=== PATIENT | female | born 1950 | race Caucasian/White ===

== ENCOUNTER 2018-07-01 14:00 | Outpatient (RCR) | payer MEDICARE, SELFPAY ==
--- NOTE | 2018-05-16 09:24 | HP.PTEVAL_ITS ---
Patient's Visit Information LAWSON HUYNH is a 68 year old F referred to Physical Therapy by Joao Velez MD with a diagnosis of B posterior neck pain. Date of Evaluation: 05/16/18 Physical Therapist: TIFFANIE Alarcon - Visit Plan Frequency: 2x /Week Duration: 3 Weeks Plan: 2X/ week for 3 weeks for MT to c-spine paraspinals, c-spine distraction, sub occipital release with postural and scapular strength with HEP. May also try US PRN. - Subjective Findings: Pt reports that she met with Dr tellez she was having a lot of pain in her neck and wanted t ofind out if it was arthritis or something else. x-ray showed mild arthritis and he suggested to do some PT. The pain comes and goes. It is stiff in the morning. When it is hurting it can be all through the day. It hurts when turns to back up with driving. It is sore at the base of head and neck and up the head. It is more so on the L than the R. She has no weakness or N&T in the arms or hands. She sleeps with 1 pillow under her head at night. 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 She has an 18 month old granddaughter with hypotonia. She does have to lift her and its getting harder. She likes to take ball room dancing classes, likes to bike, reads a lot. She is L handed. - Pain neck pain Pain Intensity (Out of 10): 5 - Objective c-spine AROM: flexion 100%, ext 25%, SB B 50%, Rot B 75%. UE AROM: Full B shoulder AROM. UE MMT: B shld flex, abd, ER and IR 4/5. Posture: Sits with rounded shoulders and fw head. Palptaion: tender B occiput, levator...slight tenderness over mid traps B. Suboccipital release and c-spine distraction felt good to the pt. - Goals Goal 1:: I HEP Goal Time Frame: 2-4 Weeks Goal 2:: Increase c-spine AROM by 25% into rotation and extension (at time of eval AROM: flexion 100%, ext 25%, SB B 50%, Rot B 75%) Goal Time Frame: 2-4 Weeks Goal 3:: Decrease neck pain and stiffness to 2/10 with ADL's Goal Time Frame: 2-4 Weeks Goal 4:: Sit with upright posture and scapular retraction during treatment sessions Goal Time Frame: 2-4 Weeks - Rehabilitation Potential Rehabilitation Potential: Good - Anticipated Interventions Patient/Client Instruction: Educate patient on: Condition, Plan of Care For the Purpose of:: To decrease pain, To increase ROM, To improve nutrient delivery to tissue, To improve muscle performance and motor function, To improve ability to perform ADL's, To increase tolerance to activity/condition/position, To improve health of tissue, To decrease soft tissue restriction, To increase flexibility/ROM Therapeutic Exercise to Include: Strength training, Postural training, Flexibilty training, Passive ROM, Active ROM, Scapular Strength/Stabilization For the Purpose of:: To decrease pain, To increase ROM, To improve nutrient delivery to tissue, To improve muscle performance and motor function, To improve ability to perform ADL's, To improve ability of physical actions for home/community/work/leisure, To improve health of tissue, To decrease soft tissue restriction, To increase flexibility/ROM Manual Therapy Techniques to Include: Passive ROM, Soft tissue mobilization For the Purpose of:: To decrease pain, To increase ROM, To increase oxygenation perfusion, To improve muscle performance and motor function, To improve ability to perform ADL's, To increase tolerance to activity/condition/position, To improve health of tissue, To decrease soft tissue restriction, To increase flexibility/ROM Thermo therapy (hot pack): Yes Ultrasound (thermal/non thermal): Yes For the Purpose of:: To decrease pain, To increase ROM, To improve nutrient delivery to tissue, To improve muscle performance and motor function, To improve ability to perform ADL's, To improve health of tissue, To decrease soft tissue restriction, To increase flexibility/ROM Thank you for the opportunity to evaluate your patient. For Medicare and Medicare HMO plans, please review the plan of care and approve it. It will need to be FAXED BACK to us at [phone] for Medicare purposes. For Medicare only, by signing this I certify the plan of care. Please let me know if there are questions or concerns regarding this plan of care. Physician Keith jonas: Date:
--- NOTE | 2018-07-01 14:31 | HP.PTDCSUM ---
HP - PT D/C Summary It has been my pleasure to treat LAWSON HUYNH under orders from Joao Velez MD, for the diagnosis of B posterior neck pain for a total of 13 visit(s). Discharge Date: 07/01/18 Please see the following information for a summary of their discharge status. - Subjective Subjective: Pt reports that she is better. There is always some pain when she has to turn her head. She is not waking up at night or not as sore in the morning. - Pain neck pain Pain Intensity (Out of 10): 1 - Overall Improvement % Improvement: 75 - Objective Objective/Function: C-spine AROM: Flexion 100%. ext 75%, Rot B 80%, SB B 50%. Posture: sits with upright posture during treatment sessions. Pt is doing her HEP - Goals Goal 1:: I HEP Goal Progress: Goal Met Goal 2:: Increase c-spine AROM by 25% into rotation and extension (at time of eval AROM: flexion 100%, ext 25%, SB B 50%, Rot B 75%) Goal Progress: Goal Met Goal 3:: Decrease neck pain and stiffness to 2/10 with ADL's Goal Progress: Goal Met Goal 4:: Sit with upright posture and scapular retraction during treatment sessions Goal Progress: Goal Met - Plan Plan: DC PT to HEP and possible 1X/ month massage - D/C Information Discharge Comments: DC PT to HEP If there are questions or concerns regarding this patient's physical therapy, please feel free to call me at [phone]. Thank you for the referral of this patient. Sincerely, Linad Case, MPT
== END 2018-07-01 19:00 | disposition home or self-care (01) ==
LOC: PT 14:00
PROVIDERS: Family Provider Family Medicine; PCP Family Medicine; Referring Provider Family Medicine; Visit Provider Family Medicine
DX: M54.2 Cervicalgia (principal)
CPT/HCPCS: 97035; 97110; 97140; 97161; 97530

== ENCOUNTER → 2018-09-10 14:48 | Outpatient (CLI) | payer MEDICARE, SELFPAY ==
--- NOTE | 2018-09-10 14:52 | BI_ITS ---
MAMMOGRAPHY - BILATERAL SCREENING REASON FOR EXAM: Female, 68 years old. Routine annual screening examination. PERTINENT HISTORY: Non-contributory. TECHNIQUE: Digital bilateral breast angie (3D mammographic acquisition) in the CC and MLO projections. 2-D mediolateral oblique (MLO) and craniocaudad (CC) views of both breasts were obtained. CAD: Full Field Digital Mammography with Computer Added Detection was performed. COMPARISON: Comparison is made with prior study dated October 07, 2015 and April 13, 2014. FINDINGS: Breast Composition: There are scattered areas of fibroglandular density. There are no dominant masses or suspicious calcifications. Stable small bilateral axillary lymph nodes. No other significant abnormalities are identified. There has been no significant change since the prior study. BI/SCREENING MAMM (CAD), BILAT IMPRESSION: Stable bilateral screening mammogram. Yearly follow-up mammogram recommended. (A) ASSESSMENT CATEGORY: BIRADS Category 2: Benign. A letter regarding these results will be sent to the patient by the facility within 30 days. Approximately 10% of breast cancers are not detected by mammography. A normal mammogram should not delay biopsy of a clinically suspicious abnormality. [id number] Electronically Signed: Lance Norman, at 9:42 EDT , Service support ,
== END ==
PROVIDERS: Family Provider Family Medicine; PCP Family Medicine; Referring Provider Family Medicine; Visit Provider Family Medicine
DX: Z12.31 Encounter for screening mammogram for malignant neoplasm of breast (principal)
CPT/HCPCS: 77063; 77067

== ENCOUNTER → 2019-02-27 06:47 | Outpatient (CLI) | payer MEDICARE, SELFPAY ==
--- NOTE | 2019-02-27 10:40 | STRESSREP_ITS ---
Stress Test Report Date: 02-27-19 Procedure: Pharmacologic stress nuclear imaging study Indications: Shortness of breath Consent: Per the patient Procedure: The patient underwent pharmacologic (Regadenoson) evaluation with a peak heart rate of 86 beats per minute (56 %predicted maximal heart rate) and a peak blood pressure of 150/98 mmHg. The baseline ECG demonstrated normal sinus rhythm; left bundle branch block pattern. The peak pharmacologic ECG demonstrated no obvious ECG changes. There were no cardiac dysrhythmias pretest, during pharmacologic infusion, or recovery. There was no complaint of chest discomfort during pharmacologic infusion or recovery. The examination was discontinued secondary to completion of protocol. Impression: 1. Pharmacologic (Regadenoson) evaluation 2. Peak pharmacologic ECG with continued left bundle branch block pattern with no obvious ECG changes. 3. There were no cardiac dysrhythmias pretest, during pharmacologic infusion, or recovery. 4. Nuclear images pending Myocardial perfusion imaging study: Technique: The patient was injected with 12.0 millicuries of technetium 99m Cardiolite and subsequently rest SPECT Cardiolite nuclear imaging was obtained in the horizontal long, vertical long, and short axis views. The patient underwent pharmacologic (Regadenoson) evaluation with a peak heart rate of 86 beats per minute (56 % percent predicted maximal heart rate) and a peak blood pressure of 150/98 mmHg. The patient was injected with 36.0 millicuries of technetium 99m Cardiolite and subsequently stress SPECT Cardiolite nuclear imaging was obtained in the horizontal long, vertical long, and short axis views. A gated Cardiolite study at peak stress was obtained. Interpretation: Rest and stress SPECT Cardiolite nuclear imaging status post realignment, normalization, and attenuation correction demonstrate at rest the appearance of diminished tracer uptake in portions of the distal anterior, anteroseptal, anterolateral, and apical segments which status post stress appears to be less prominent. There is end systolic thickening and brightening. The gated Cardiolite study demonstrates myocardial thickening and inward wall motion. The reported LVEF is 73 %. Impression: 1. Rest and stress SPECT Cardiolite nuclear imaging demonstrate myocardial perfusion changes at rest which appear to be less prominent following stress potentially compatible with shifting soft tissue attenuation/artifact, however, an area of previous myocardial injury/infarction involving the aforementioned areas cannot necessarily be excluded. There are no myocardial perfusion changes considered diagnostic for associated stress-induced myocardial ischemia. 2. The gated Cardiolite study reports an LVEF of 73 %. This note was generated with [employer] software. It may contain incorrect words, spelling, and punctuation that were not noted in checking the note before signing.
== END ==
PROVIDERS: Family Provider Family Medicine; PCP Family Medicine
DX: I10 Essential (primary) hypertension (principal); I44.7 Left bundle-branch block, unspecified; R06.02 Shortness of breath; R73.01 Impaired fasting glucose
CPT/HCPCS: 78452; 93017; A9500; A4216; J2785

== ENCOUNTER → 2020-01-29 15:00 | Outpatient (CLI) | payer MEDICARE, SELFPAY ==
[2017-09-06 15:14] VITALS: BMI 36.8
--- NOTE | 2020-01-29 15:05 | RAD_ITS ---
STUDY: X-RAY - LEFT FOOT CLINICAL: Female, 69 years old. hit foot on step, left 2nd digit pain TECHNIQUE: 3 view(s) of the foot. COMPARISON: None. FINDINGS: The bones of the foot are intact and located with mild age-appropriate change. Soft tissues are unremarkable. RAD/Foot min 3 Views IMPRESSION: Unremarkable foot radiography, chronic age-related change. Electronically Signed: Melissa Bedolla, at 15:51 EDT Tel , Service support ,
== END ==
PROVIDERS: PCP Family Medicine; Referring Provider Family Medicine; Visit Provider Family Medicine
DX: M79.675 Pain in left toe(s) (principal)
CPT/HCPCS: 73630

== ENCOUNTER → 2020-11-30 13:18 | Outpatient (CLI) | payer MEDICARE, SELFPAY ==
--- NOTE | 2020-11-30 13:20 | BI_ITS ---
MAMMOGRAPHY - BILATERAL SCREENING REASON FOR EXAM: Female, 70 years old. Routine annual screening examination. PERTINENT HISTORY: Non-contributory. TECHNIQUE: Digital bilateral breast roger (3D mammographic acquisition) in the CC and MLO projections. 2-D mediolateral oblique (MLO) and craniocaudad (CC) views of both breasts were obtained. CAD: Full Field Digital Mammography with Computer Added Detection was performed. COMPARISON: Comparison is made with prior study dated 09/10/2018 and 10/07/2015. FINDINGS: Breast Composition: There are scattered areas of fibroglandular density. There are no dominant masses or suspicious calcifications. Stable benign-appearing bilateral axillary No other significant abnormalities are identified. There has been no significant change since the prior study. BI/SCRN MAMM (CAD)W/ROGER BILAT IMPRESSION: Stable bilateral screening mammogram. Yearly follow-up mammogram recommended. (A) ASSESSMENT CATEGORY: BIRADS Category 2: Benign. A letter regarding these results will be sent to the patient by the facility within 30 days. Approximately 10% of breast cancers are not detected by mammography. A normal mammogram should not delay biopsy of a clinically suspicious abnormality. [id number] Electronically Signed: Lance Norman MD at 14:37 EDT , Service support ,
== END ==
PROVIDERS: PCP Family Medicine; Referring Provider Family Medicine; Visit Provider Family Medicine
DX: Z12.31 Encounter for screening mammogram for malignant neoplasm of breast (principal)
CPT/HCPCS: 77063; 77067

== ENCOUNTER → 2020-12-02 11:22 | Outpatient (CLI) | payer MEDICARE, SELFPAY ==
[2017-09-06 15:14] VITALS: BMI 36.8
[2020-12-02 12:38] LABS: Absolute Lymphocyte Count 2.94 X10^3/uL (0.83-4.51); Absolute Neutrophil Count 2.7 X10^3/uL (2.0-7.7); Basophil# 0.04 X10^3/uL; Basophil% 0.6 % (0-1); Eosinophil# 0.28 X10^3/uL; Eosinophils% 4.2 % (0-5); Hemoglobin 14.6 g/dL (12.0-15.0); Lymphocyte # 2.94 X10^3/ul (0.83-4.51); Lymphocyte % 43.6 % (19-41); Mean Corp Hgb Conc 31.7 g/dL (32-36); Mean Corpuscular Hgb 28.5 pg (27.0-32.0); Mean Corpuscular Volume 89.7 fL (81-99); Mean Platelet Vol. 11.3 fl (6.2-12.0); Monocyte# 0.73 X10^3/uL; Monocyte% 10.8 % (0-10); NRBC Flagged by Analyzer 0 % (0-5); Neutrophil # 2.72 X10^3/uL (2.7-7.7); Neutrophil % 40.4 % (47-70); Platelet Count 273 K/mm3 (150-450); RBC Distribution Width CV 14.4 % (11.6-14.6); RBC Distribution Width SD 46.7 fl (35.1-43.9); Red Blood Count 5.13 M/mm3 (4.2-5.4); White Blood Count 6.7 K/mm3 (4.4-11.0)
[2020-12-02 13:01] LABS: Hemoglobin A1c 5.7 % (3.8-5.6)
[2020-12-02 13:31] LABS: AST(SGOT) 36 U/L (15-37); Alanine Aminotransfer ALT/SGPT 55 U/L (13-56); Albumin, Serum 3.5 g/dL (3.2-5.0); Alkaline Phosphatase 71 U/L (45-117); Anion Gap 5 (5-15); BUN 15 mg/dL (7-18); BUN/Creat Ratio 19.4 RATIO (10-20); Chloride 105 mmol/L (98-107); Cholesterol 185 mg/dL (200); Creatinine, Serum 0.77 mg/dL (0.55-1.02); EST Glomerular Filtration Rate 79 mL/min (>60); Est Glom Filt Rate - Afr Amer 95 mL/min (>60); Globulin 3.6 g/dL (2.2-4.2); Glucose 95 mg/dL (74-106); High Density Lipoprotein 49 mg/dL; Potassium 3.6 mmol/L (3.5-5.1); Protein, Total 7.1 g/dL (6.4-8.2); Sodium Level 140 mmol/L (136-145); Thyroid Stim Hormone (TSH) 0.15 uIU/mL (0.358-3.74); Triglycerides 184 mg/dL; Very Low Density Lipoprotein 37 mg/dL (5-40)
[2020-12-02 15:51] LABS: Hepatitis C Antibody Non-Reactive (Nonreactive)
== END ==
PROVIDERS: PCP Family Medicine; Referring Provider Family Medicine; Visit Provider Family Medicine
DX: Z00.00 Encounter for general adult medical examination without abnormal findings (principal); I10 Essential (primary) hypertension; R73.01 Impaired fasting glucose; E78.1 Pure hyperglyceridemia
CPT/HCPCS: 36415; 80053; 80061; 83036; 84443; 85025; 86803

== ENCOUNTER 2021-09-07 20:00 | Outpatient (CLI) | payer MEDICARE, SELFPAY ==
[2021-09-07 20:05] LABS: Mucous, Urine 0 SEEN /hpf (<or=2+); Red Blood Cells-Urine 0 SEEN /hpf (0-5); Squamous Epithelial Cells - UA 0 SEEN /hpf (5-10)
[2021-09-07 20:14] LABS: Color, Urine Amber (Yellow); Glucose, Dipstick Normal (Normal); Ketone-Dipstick Negative (Negative); Leukocyte Esterase-Dipstick 100 /ul (Negative); Nitrite-Dipstick Positive (Negative); Occult Blood-Urine Negative /ul (Negative); Protein-Dipstick 15 mg/dl (Negative); Urine Clarity Clear (Clear); Urine Urobilinogen 4 mg/dl (Normal)
[2021-09-07 20:30] LABS: Urine Bilirubin Dipstick 3 mg/dL (Negative)
[2021-09-07 20:39] LABS: White Blood Cells 25-50 SEEN /hpf (0-5)
[2021-09-07 20:40] LABS: Bacteria 1+ /hpf (None Seen)
== END 2021-09-07 23:59 | disposition home or self-care (01) ==
PROVIDERS: PCP Family Medicine; Referring Provider Physician Assistant; Visit Provider Physician Assistant
DX: N39.0 Urinary tract infection, site not specified (principal); R34 Anuria and oliguria; R35.0 Frequency of micturition; R30.0 Dysuria
CPT/HCPCS: 81001; 87086; 87088

== ENCOUNTER → 2021-12-28 | Outpatient (CLI) | payer MEDICARE, SELFPAY ==
--- NOTE | 2021-12-28 15:20 | BI_ITS ---
MAMMOGRAPHY - BILATERAL SCREENING REASON FOR EXAM: Female, 71 years old. Routine annual screening examination. PERTINENT HISTORY: Non-contributory. TECHNIQUE: Digital bilateral breast roger (3D mammographic acquisition) in the CC and MLO projections. 2-D mediolateral oblique (MLO) and craniocaudad (CC) views of both breasts were obtained. CAD: Full Field Digital Mammography with Computer Added Detection was performed. COMPARISON: Comparison is made with prior study dated 11/30/2020 and 09/10/2018. FINDINGS: Breast Composition: There are scattered areas of fibroglandular density. There are no dominant masses or suspicious calcifications. Stable small benign-appearing bilateral axillary lymph nodes. No other significant abnormalities are identified. There has been no significant change since the prior study. BI/SCRN MAMM (CAD)W/ROGER BILAT IMPRESSION: Stable bilateral screening mammogram. Yearly follow-up mammogram recommended. (A) ASSESSMENT CATEGORY: BIRADS Category 2: Benign. A letter regarding these results will be sent to the patient by the facility within 30 days. Approximately 10% of breast cancers are not detected by mammography. A normal mammogram should not delay biopsy of a clinically suspicious abnormality. [id number] Electronically Signed: Lance Norman MD at 8:16 EDT ,
--- NOTE | 2021-12-28 15:24 | BD_ITS ---
STUDY: DUAL ENERGY X-RAY ABSORPTIOMETRY / DXA REASON FOR EXAM: Female, 71 years old. Z780. Patient is postmenopausal. TECHNIQUE: Bone Mineral Density (BMD) measurements of lumbar spine and bilateral hips were obtained. COMPARISON: None. FINDINGS: Lumbar Spine (L1-L4): g/cm2 (0.772) / T-score (-2.5) / Z-score (-0.3) Findings are suggestive of osteopenia with a high fracture risk. Left Femur Total: g/cm2 (0.922) / T-score (-0.2) / Z-score (1.4) Left Femoral Neck: g/cm2 (0.641) / T-score (-1.9) / Z-score (0.0) Right Femur Total: g/cm2 (0.917) / T-score (-0.2) / Z-score (1.3) Right Femoral Neck: g/cm2 (0.681) / T-score (-1.5) / Z-score (0.3) BD/Dexa Bone Density Study IMPRESSION: The patient is considered osteopenic as outlined below according to World Marco Organization (WHO) criteria with a high fracture risk. Reference Information: The T-score is the number of standard deviations above or below the standard which is normal for young adults at their peak bone mineral density. The World Health Organization (WHO) interprets the T-scores as follows: Above -1 Normal bone density Between -1 and -2.5 Osteopenia Equal to / or below -2.5 Osteoporosis As a practical clinical guideline, osteopenia may be graded as follows: Mild -1 through -1.5 Moderate -1.6 through -2.0 Severe -2.1 through -2.4 The Z-score is the number of standard deviations above or below age-matched controls. A Z-score of less than -1.5 would be considered abnormal. References: 1. NIH Osteoporosis and Related Bone Diseases www osteo.org 2. International Society for Clinical Densitometry www iscd.org 3. National Osteoporosis Foundation www nof.org Electronically Signed: Lance Norman MD at 12:39 EDT ,
== END | disposition home or self-care (01) ==
PROVIDERS: PCP Family Medicine; Visit Provider Family Medicine
DX: Z78.0 Asymptomatic menopausal state (principal); Z12.31 Encounter for screening mammogram for malignant neoplasm of breast
CPT/HCPCS: 77063; 77067; 77080

== ENCOUNTER → 2022-10-03 | Outpatient (CLI) | payer MEDICARE, SELFPAY ==
--- NOTE | 2022-10-03 14:50 | US_ITS ---
STUDY: ULTRASOUND OF THE FEMALE PELVIS - COMPLETE REASON FOR EXAM: Female, 72 years old. PAIN LMP: TECHNIQUE: Transabdominal and transvaginal TECHNICAL QUALITY: Adequate. COMPARISON: None. FINDINGS: The uterus is anteverted and is in a midline position. The uterus measures 6.8 x 4.7 x 2.4 cm. Normal uterine cervix. The endometrium measures 3.3 mm in thickness, and is hyperechoic with intraluminal fluid.. There is no demonstrated endometrial mass. There is a small fundal fibroid measuring 1.7 x 2.3 x 2 cm. I.U.D. - The patient does not have an I.U.D. Ovaries are not visualized due to patient body habitus and gas. No discrete adnexal mass or free fluid is observed.. US/Pelvic (Non ) IMPRESSION: Small intrauterine fibroid measuring approximately 1.7 x 2.3 x 2 cm. Nonvisualization of the normal ovaries however there is no adnexal mass or free fluid Electronically Signed: Chetan Delong MD at 17:39 EDT ,
--- NOTE | 2022-10-03 14:50 | US_ITS ---
STUDY: ULTRASOUND OF THE FEMALE PELVIS - COMPLETE REASON FOR EXAM: Female, 72 years old. PAIN LMP: TECHNIQUE: Transabdominal and transvaginal TECHNICAL QUALITY: Adequate. COMPARISON: None. FINDINGS: The uterus is anteverted and is in a midline position. The uterus measures 6.8 x 4.7 x 2.4 cm. Normal uterine cervix. The endometrium measures 3.3 mm in thickness, and is hyperechoic with intraluminal fluid.. There is no demonstrated endometrial mass. There is a small fundal fibroid measuring 1.7 x 2.3 x 2 cm. I.U.D. - The patient does not have an I.U.D. Ovaries are not visualized due to patient body habitus and gas. No discrete adnexal mass or free fluid is observed.. US/Transvaginal Non- IMPRESSION: Small intrauterine fibroid measuring approximately 1.7 x 2.3 x 2 cm. Nonvisualization of the normal ovaries however there is no adnexal mass or free fluid Electronically Signed: Chetan Delong MD at 17:39 EDT ,
== END | disposition home or self-care (01) ==
LOC: US 14:47
PROVIDERS: PCP Family Medicine; Referring Provider Family Medicine; Visit Provider Family Medicine
DX: R10.2 Pelvic and perineal pain (principal)
CPT/HCPCS: 76830; 76856

== ENCOUNTER 2022-11-23 08:30 | Outpatient (RCR) | payer MEDICARE, SELFPAY ==
--- NOTE | 2022-10-03 17:27 | HP.PTEVAL_ITS ---
Patient's Visit Information LAWSON HUYNH is a 72 year old F referred to Physical Therapy by Dr. Nuzhat Armendariz MD with a diagnosis of PSOAS MUSCLE STRAIN. Date of Evaluation: 10/03/22 Physical Therapist: Rod Barrera PT, Cert MDT, OCS - Visit Plan Frequency: 2x /Week Duration: 4 Weeks Plan: PT INTERVTIONS POSTURAL EX'S ,DLS , LE FLEXABLITY , HIP STRENGTHENING AND OKAY FOR US NEEDED FOR PAIN - Subjective This 72 y/o female presents to physical therapy for right back pain. Patient has had right LBP for ~ 2months . Patient has no etiology of pain other than yardwork and housework . Seen Dr tried exercises and tried chiropractor did not help. Patient had x-rays of lumbar by chiropractor. Patient had US today vaginal . Aggravating factors AM, bending, lifting ,stairs , walking and standing extended . Alleviating factors Aleve ,muscle relaxer ,rest. Coughing/sneezing -. Bowel/bladder -. Pain affects sleeping. Patient has no h/o trauma. Patient pain affects QOL and function. SOCIAL: . VOCATION: retired - Pain Right Back Pain Intensity (Out of 10): 7 Pain Intensity Range: N/A - Objective POSTURE: mild forward posture. PALPATION: unremarkable. SYMMETRIES: align. FLEXABILITY: hamstrings min tight. LUMBAR ROM: flexion WFL ,extension mod loss pain right side ,side glides min. MMT: quads/hams 4/5, ( peak force) hip flexion right 12.3,left 15.8 ,ankle 4/5 - Special Tests L/S Slump test left side: Negative L/S Slump test right side: Negative L/S Left Straight Leg Raise: Negative L/S Right Straight Leg Raise: Negative Lumbar Standing: Flexion - Mechanical Response: No effect Lumbar Standing: Flexion - Symptoms During Testing: Increases Lumbar Standing: Flexion - Symptoms After Testing: No worse Lumbar Standing: Extension - Mechanical Response: No effect Lumbar Standing: Extension - Symptoms During Testing: Increases Lumbar Standing: Extension - Symptoms After Testing: Worse Lumbar Standing: Right Side Glides - Mechanical Response: No effect Lumbar Standing: Right Side [place] - Symptoms During Testing: No effect Lumbar Standing: Right Side [place] - Symptoms After Testing: No effect Lumbar Standing: Left Side [place] - Mechanical Response: No effect Lumbar Standing: Left Side [place] - Symptoms During Testing: No effect Lumbar Standing: Left Side [place] - Symptoms After Testing: No effect Lumbar Lying: Flexion - Mechanical Response: No effect Lumbar Lying: Flexion - Symptoms During Testing: Increases Lumbar Lying: Flexion - Symptoms After Testing: No worse Lumbar Lying: Extension - Mechanical Response: Increases motion Lumbar Lying: Extension - Symptoms During Testing: Increases Lumbar Lying: Extension - Symptoms After Testing: Worse - Balance/Special Test Scores Oswestry Low Back Score: 22 - Goals Goal 1:: Patient to be I with HEP Goal Time Frame: 4-6 Weeks Goal 2:: Patient to improve posture/body mechanics for ADL's 80% of the time. Goal Time Frame: 4-6 Weeks Goal 3:: Patient to improve lumbar ROM for function of recovery to tie shoes and ADL's Goal Time Frame: 4-6 Weeks Goal 4:: Patient to improve peak force MMT by 5-10 points to improve gait and function Goal Time Frame: 4-6 Weeks Goal 5:: Patient to improve back oswestry score by 5 points to improve QOL and function. Goal Time Frame: 4-6 Weeks - Rehabilitation Potential Physical Therapy Diagnosis: This patient has lumbar pain right side with possible lateral stenosis pain worse with extension ,positioning and motion testing ,affects walking/standing impairs ADLS and housework tasks Rehabilitation Potential: Good - Anticipated Interventions Patient/Client Instruction: Educate patient on: Condition, Plan of Care For the Purpose of:: To decrease pain, To increase ROM, To improve muscle performance and motor function, To improve ability to perform ADL's, To increase tolerance to activity/condition/position, To improve ability of physical actions for home/community/work/leisure, To improve health of tissue, To decrease soft tissue restriction, To increase flexibility/ROM Therapeutic Exercise to Include: Strength training, Endurance training, Body mechanics, Postural training, Flexibilty training, Active ROM, Dynamic Lumbar Stabilization Comment: HIPS For the Purpose of:: To decrease pain, To increase ROM, To improve muscle performance and motor function, To improve ability to perform ADL's, To increase tolerance to activity/condition/position, To improve ability of physical actions for home/community/work/leisure, To improve health of tissue, To decrease soft tissue restriction, To increase flexibility/ROM, To improve tolerance to ADL's Cryotherapy (ice pack, ice massage): Yes Thermo therapy (hot pack): Yes Ultrasound (thermal/non thermal): Yes For the Purpose of:: To decrease pain, To increase ROM, To improve nutrient delivery to tissue, To increase oxygenation perfusion, To improve health of tissue, To decrease soft tissue restriction Thank you for the opportunity to evaluate your patient. For Medicare and Medicare HMO plans, please review the plan of care and approve it. It will need to be FAXED BACK to us at [phone] for Medicare purposes. For Medicare only, by signing this I certify the plan of care. Please let me know if there are questions or concerns regarding this plan of care. Physician Signature: Date:
--- NOTE | 2022-11-23 09:28 | HP.PTDCSUM ---
It has been my pleasure to treat LAWSON HUYNH referred by Dr. Nuzhat Armendariz MD, with the diagnosis of PSOAS MUSCLE STRAIN for a total of 9 visit(s). Discharge Date: 11/23/22 Please see the following information for a summary of their discharge status. Subjective: Patient symptoms worse initially then since Saturday symptoms 90%. pain 7-8 /10 Right Back Pain Intensity (Out of 10): 0 % Improvement: 90 Objective/Function: POSTURE: mild forward posture. PALPATION: unremarkable. SYMMETRIES: align. FLEXABILITY: hamstrings min tight. LUMBAR ROM: flexion WFL ,extension MIN loss ,side glides min. MMT: quads/hams 4/5, ( peak force) hip flexion right 22.7,left 25.3 ,ankle 4/5 Goal 1:: Patient to be I with HEP Goal Progress: Goal Met Goal 2:: Patient to improve posture/body mechanics for ADL's 80% of the time. Goal Progress: Goal Met Goal 3:: Patient to improve lumbar ROM for function of recovery to tie shoes and ADL's Goal Progress: Goal Met Goal 4:: Patient to improve peak force MMT by 5-10 points to improve gait and function Goal Progress: Goal Met Goal 5:: Patient to improve back oswestry score by 5 points to improve QOL and function. Goal Progress: Goal Met Plan: D/C Discharge Comments: HEP AND GYM If there are questions or concerns regarding this patient's physical therapy, please feel free to call me at [phone]. Thank you for the referral of this patient. Sincerely, Rod Barrera, PT, Cert MDT, OCS Balance/Gait/Functional tests - Balance/Special Test Scores Oswestry Low Back Score: 6
== END 2022-11-23 19:00 | disposition home or self-care (01) ==
LOC: PT 08:30
PROVIDERS: PCP Family Medicine; Referring Provider Family Medicine; Visit Provider Family Medicine
DX: S76.011D Strain of muscle, fascia and tendon of right hip, subsequent encounter (principal)
CPT/HCPCS: 97110; 97162; 97530

== ENCOUNTER → 2023-03-06 | Outpatient (CLI) | payer MEDICARE, SELFPAY ==
[2023-03-06 12:29] LABS: Hematocrit 45.7 % (37-47); Hemoglobin 14.5 g/dL (12.0-15.0); Mean Corp Hgb Conc 31.7 g/dL (32-36); Mean Corpuscular Hgb 29.1 pg (27.0-32.0); Mean Corpuscular Volume 91.6 fL (81-99); Mean Platelet Vol. 11.4 fl (6.2-12.0); Platelet Count 220 K/mm3 (150-450); RBC Distribution Width CV 13.8 % (11.6-14.6); RBC Distribution Width SD 46.5 fl (35.1-43.9); Red Blood Count 4.99 M/mm3 (4.2-5.4); White Blood Count 6.8 K/mm3 (4.4-11.0)
[2023-03-06 13:09] LABS: ALB/GLOB Ratio 0.8 RATIO (0.9-2.4); AST(SGOT) 37 U/L (15-37); Alanine Aminotransfer ALT/SGPT 49 U/L (13-56); Albumin, Serum 3.2 g/dL (3.2-5.0); Alkaline Phosphatase 74 U/L (45-117); Anion Gap 7 (5-15); BUN 14 mg/dL (7-18); BUN/Creat Ratio 18.5 RATIO (10-20); Calcium,Total 9.2 mg/dL (8.5-10.1); Chloride 108 mmol/L (98-107); Creatinine, Serum 0.76 mg/dL (0.55-1.02); EST Glomerular Filtration Rate 80 mL/min (>60); Est Glom Filt Rate - Afr Amer 97 mL/min (>60); Globulin 4.1 g/dL (2.2-4.2); Glucose 102 mg/dL (74-106); Potassium 4.4 mmol/L (3.5-5.1); Protein, Total 7.3 g/dL (6.4-8.2); Sodium Level 135 mmol/L (136-145)
[2023-03-06 13:34] LABS: Hemoglobin A1c 5.8 % (3.8-5.6)
== END | disposition home or self-care (01) ==
PROVIDERS: PCP Family Medicine; Referring Provider Family Medicine; Visit Provider Family Medicine
DX: E03.9 Hypothyroidism, unspecified (principal); R73.01 Impaired fasting glucose; I10 Essential (primary) hypertension
CPT/HCPCS: 36415; 80053; 83036; 84443; 85027

== ENCOUNTER → 2023-03-25 | Outpatient (CLI) | payer MEDICARE, SELFPAY ==
--- NOTE | 2023-03-25 14:11 | BI_ITS ---
MAMMOGRAPHY - BILATERAL SCREENING REASON FOR EXAM: Female, 73 years old. Routine annual screening examination. PERTINENT HISTORY: Non-contributory. TECHNIQUE: Digital bilateral breast roger (3D mammographic acquisition) in the CC and MLO projections. 2-D mediolateral oblique (MLO) and craniocaudad (CC) views of both breasts were obtained. CAD: Full Field Digital Mammography with Computer Added Detection was performed. COMPARISON: Comparison is made with prior study dated December 28, 2021 and November 30, 2020. FINDINGS: Breast Composition: There are scattered areas of fibroglandular density. There are no dominant masses or suspicious calcifications. Stable benign-appearing bilateral axillary lymph nodes. No other significant abnormalities are identified. There has been no significant change since the prior study. BI/SCRN MAMM (CAD)W/ROGER BILAT IMPRESSION: Stable bilateral screening mammogram. Yearly follow-up mammogram recommended. (A) ASSESSMENT CATEGORY: BIRADS Category 2: Benign. A letter regarding these results will be sent to the patient by the facility within 30 days. Approximately 10% of breast cancers are not detected by mammography. A normal mammogram should not delay biopsy of a clinically suspicious abnormality. [id number] Electronically Signed: Lance Norman MD at 15:19 EDT ,
== END | disposition home or self-care (01) ==
LOC: OPBI 14:09
PROVIDERS: PCP Family Medicine; Referring Provider Family Medicine; Visit Provider Family Medicine
DX: Z12.31 Encounter for screening mammogram for malignant neoplasm of breast (principal)
CPT/HCPCS: 77063; 77067

== ENCOUNTER → 2023-09-06 | Outpatient (CLI) | payer MEDICARE, SELFPAY | END | disposition home or self-care (01) | PROVIDERS: PCP Family Medicine; Referring Provider Physician Assistant Surgical; Visit Provider Physician Assistant Surgical | DX: N39.0 Urinary tract infection, site not specified (principal) | CPT/HCPCS: 87077; 87086; 87088; 87186 ==

== ENCOUNTER → 2023-11-19 | Outpatient (CLI) | payer MEDICARE, SELFPAY ==
--- NOTE | 2023-11-19 09:55 | ECHOD_ITS ---
Reason For Study: HTN, Abn EKG Procedure This was a 2D Doppler, Color Flow transthoracic echocardiogram. Exam performed in department. Left Ventricle Normal LV size. Mild eccentric left ventricular hypertrophy. Left ventricular systolic function is normal. The estimated ejection fraction is 60 %. Stage 1 diastolic dysfunction. No regional wall motion abnormalities noted. Right Ventricle Normal RV size. Normal systolic function. Atria Normal left atrium. Normal right atrium. Mitral Valve There is moderate mitral annular calcification. Mild (1+) eccentric mitral valve insufficiency. Tricuspid Valve Normal tricuspid valve. Mild tricuspid valve insufficiency. Pulmonary artery systolic pressure is 24 mmHg. Aortic Valve Trisinus/trileaflet aortic valve. Mild focal aortic valve thickening. Pulmonic Valve Normal pulmonic valve. Great Vessels Normal aortic root. The pulmonary artery is normal size. Normal inferior vena cava. Pericardium/Pleural No pericardial effusion. MMode/2D Measurements & Calculations LVIDd: 4.0 cm IVSd: 1.6 cm LVOT diam: 2.0 cm LVIDs: 2.6 cm LVPWd: 0.94 cm LVOT area: 3.0 cm2 RVDd: 3.2 cm FS: 34.6 % Ao root diam: 3.7 cm LAV(MOD-bp): 42.9 ml LVAd ap4: 28.3 cm2 LAV(MOD-bp) Indexed: 22.5 ml/m2 LVLd ap4: 7.9 cm LAV(MOD-sp2): 47.5 ml EDV(MOD-sp4): 82.1 ml LAV(MOD-sp4): 36.1 ml EDV(sp4-el): 86.1 ml LVAs ap4: 15.6 cm2 LVLs ap4: 6.5 cm ESV(MOD-sp4): 32.2 ml ESV(sp4-el): 32.1 ml EF(MOD-sp4): 60.7 % EF(sp4-el): 62.7 % LVAd ap2: 26.9 cm2 SV(MOD-sp4): 49.9 ml SV(MOD-sp2): 53.8 ml LVLd ap2: 8.0 cm EDV(MOD-sp2): 73.5 ml EDV(sp2-el): 76.9 ml LVAs ap2: 12.0 cm2 LVLs ap2: 6.2 cm ESV(MOD-sp2): 19.7 ml ESV(sp2-el): 19.7 ml EF(MOD-sp2): 73.1 % SV(sp4-el): 54.0 ml LA dimension(2D): 4.0 cm LA A4 area: 15.7 cm2 RA A4 area: 11.9 cm2 TAPSE: 1.7 cm Time Measurements MV dec time: 0.27 sec Doppler Measurements & Calculations MV E max nico: 81.9 cm/sec Lat Peak E' Nico: 8.4 cm/sec Med Peak E' Nico: 4.0 cm/sec MV A max nico: 118.1 cm/sec E/E' lat: 9.8 E/E' med: 20.4 MV E/A: 0.69 Ao V2 max: 237.8 cm/sec AI max nico: 491.8 cm/sec MV dec slope: 306.0 cm/sec2 Ao max P.7 mmHg AI max P.8 mmHg Ao V2 mean: 165.0 cm/sec Ao mean P.5 mmHg AI dec slope: 219.2 cm/sec2 Ao V2 VTI: 49.8 cm AI P1/2t: 657.1 msec AV (velocity ratio): 0.84 RYAN(I,D): 2.5 cm2 RYAN(V,D): 2.2 cm2 LV V1 max: 178.7 cm/sec SV(LVOT): 124.5 ml PA V2 max: 143.3 cm/sec LV V1 max P.8 mmHg PA V2 mean: 85.5 cm/sec LV V1 mean P.8 mmHg LV V1 mean: 141.7 cm/sec LV V1 VTI: 41.6 cm TR max nico: 231.9 cm/sec TR max P.5 mmHg ECHO/Echo Complete Interpretation Summary Normal LV size. Left ventricular systolic function is normal. The estimated ejection fraction is 60 %. Mild (1+) eccentric mitral valve insufficiency. Stage 1 diastolic dysfunction. Ordering Physician: GOKUL BAUER Referring Physician: GOKUL BAUER Performed By: Abby Black RDCS and Student
== END | disposition home or self-care (01) ==
PROVIDERS: PCP Family Medicine
DX: I44.7 Left bundle-branch block, unspecified (principal); R06.02 Shortness of breath; I10 Essential (primary) hypertension
CPT/HCPCS: 93306

== ENCOUNTER → 2024-05-22 | Outpatient (CLI) | payer MEDICARE, SELFPAY ==
--- NOTE | 2024-05-22 13:03 | BI_ITS ---
MAMMOGRAPHY - BILATERAL SCREENING REASON FOR EXAM: Female, 74 years old. Routine annual screening examination. PERTINENT HISTORY: Non-contributory. TECHNIQUE: Digital bilateral breast roger (3D mammographic acquisition) in the CC and MLO projections. 2-D mediolateral oblique (MLO) and craniocaudad (CC) views of both breasts were obtained. CAD: Full Field Digital Mammography with Computer Added Detection was performed. COMPARISON: Comparison is made with prior study dated March 25, 2023 and December 28, 2021. FINDINGS: Breast Composition: There are scattered areas of fibroglandular density. There are no dominant masses or suspicious calcifications. Stable bilateral fat-containing axillary lymph nodes. No other significant abnormalities are identified. There has been no significant change since the prior study. BI/SCRN MAMM (CAD)W/ROGER BILAT IMPRESSION: Stable bilateral screening mammogram. Yearly follow-up mammogram recommended. (A) ASSESSMENT CATEGORY: BIRADS Category 2: Benign. A letter regarding these results will be sent to the patient by the facility within 30 days. Approximately 10% of breast cancers are not detected by mammography. A normal mammogram should not delay biopsy of a clinically suspicious abnormality. [id number] Electronically Signed: Lance Norman MD at 13:45 EST ,
== END | disposition home or self-care (01) ==
LOC: OPBI 13:01
PROVIDERS: PCP Internal Medicine; Referring Provider Internal Medicine; Visit Provider Internal Medicine
DX: Z12.31 Encounter for screening mammogram for malignant neoplasm of breast (principal)
CPT/HCPCS: 77063; 77067

== ENCOUNTER → 2025-03-10 | Outpatient (CLI) | payer MEDICARE, SELFPAY ==
[2025-03-10 13:25] LABS: AST(SGOT) 31 U/L (<=31); Alanine Aminotransfer ALT/SGPT 29 U/L (<=34); Albumin, Serum 4.1 g/dL (3.4-4.8); Alkaline Phosphatase 69 U/L (35-104); Anion Gap 12 (5-15); BUN 18 mg/dL (4-19); BUN/Creat Ratio 23.7 RATIO (10-20); Calcium,Total 9.6 mg/dL (7.6-11.0); Carbon Dioxide 24.7 mmol/L (21.0-32.0); Chloride 103 mmol/L (98-108); Cholesterol 176 mg/dL (<=200); Globulin 2.8 g/dL (2.2-4.2); Glucose 106 mg/dL (70-99); Low Density Lipoprotein Calc. 96 mg/dL; Potassium 4.0 mmol/L (3.3-5.1); Triglycerides 146 mg/dL; Very Low Density Lipoprotein 29 mg/dL (5-40); cholesterol:hdl ratio screen 3.46
== END | disposition home or self-care (01) ==
LOC: MTLAB 09:54
PROVIDERS: PCP Internal Medicine
DX: E78.1 Pure hyperglyceridemia (principal); R73.01 Impaired fasting glucose; E03.9 Hypothyroidism, unspecified
CPT/HCPCS: 36415; 80053; 80061; 83036; 84443